=== PATIENT | male | born 1995 | race American Indian/Alaskan Native ===

== ENCOUNTER 2018-08-07 12:17 | Emergency (ER) | payer OTHER ==
[2018-08-07 12:21] VITALS: BP 126/78
--- NOTE | 2018-08-07 14:12 | Emergency Department Report ---
- General Chief Complaint: Upper Respiratory Infection Stated Complaint: FLU LIKE SYMPTOMS Time Seen by Provider: 08/07/18 14:01 Source: patient Mode of arrival: Ambulatory Limitations: No Limitations - History of Present Illness Initial Comments: Pt is a 23 yo male who presents to the ED with c/o a cough that began three weeks ago. The patient states he has yellow/green sputum production. The patient has associated congestion. He denies any rhinorrhea, sore throat, ear ache, or fever. He has not seen anyone for the cough. The patient has tried taking advil, OTC congestion medication, and dayquil with some relief. He denies any PMHx. He is a daily smoker with vapes. - Related Data Previous Rx's Medication Instructions Recorded Last Taken Type Azithromycin [Zithromax Z-ALEX] 250 mg PO DAILY 5 Days #6 tablet 08/07/18 Unknown Rx Benzonatate [Tessalon Perles] 100 mg PO Q8HR PRN #20 capsule 08/07/18 Unknown Rx Prednisone [predniSONE 10 mg 10 mg PO .TAPER #1 tab.ds.pk 08/07/18 Unknown Rx (6-Day Pack, 21 Tabs)] Allergies Allergy/AdvReac Type Severity Reaction Status Date / Time No Known Allergies Allergy Unverified 08/07/18 12:18 ED Review of Systems ROS: Stated complaint: FLU LIKE SYMPTOMS Other details as noted in HPI Comment: All other systems reviewed and negative ED Past Medical Hx - Past Medical History Previous Medical History?: No - Surgical History Past Surgical History?: No - Social History Smoking Status: Current Every Day Smoker Substance Use Type: Alcohol - Medications Home Medications: Home Medications Medication Instructions Recorded Confirmed Last Taken Type Azithromycin [Zithromax Z-ALEX] 250 mg PO DAILY 5 Days #6 tablet 08/07/18 Unknown Rx Benzonatate [Tessalon Perles] 100 mg PO Q8HR PRN #20 capsule 08/07/18 Unknown Rx Prednisone [predniSONE 10 mg 10 mg PO .TAPER #1 tab.ds.pk 08/07/18 Unknown Rx (6-Day Pack, 21 Tabs)] ED Physical Exam - General Limitations: No Limitations General appearance: alert, in no apparent distress - Head Head exam: Present: atraumatic, normocephalic - Eye Eye exam: Present: normal appearance - ENT ENT exam: Present: normal orophraynx, mucous membranes moist - Respiratory Respiratory exam: Present: normal lung sounds bilaterally. Absent: respiratory distress, rales, rhonchi, stridor, chest wall tenderness, accessory muscle use, decreased breath sounds, prolonged expiratory - Cardiovascular Cardiovascular Exam: Present: regular rate, normal rhythm, normal heart sounds. Absent: systolic murmur, rubs, gallop - Neurological Exam Neurological exam: Present: alert, oriented X3 - Psychiatric Psychiatric exam: Present: normal affect, normal mood ED Course Vital Signs 08/07/18 12:19 Temperature 98.6 F Pulse Rate 64 Respiratory 18 Rate Blood Pressure 126/78 O2 Sat by Pulse 100 Oximetry ED Medical Decision Making - Radiology Data Radiology results: report reviewed, image reviewed CXR no acute process - Medical Decision Making Pt presents with a cough for three weeks with mucus sputum production. Has associated congestion, denies any other symptoms. VSS. CXR with no acute process . Gave pt zpak, prednisone, and tessalon perles. Will have pt follow up with PCP in the next 2-3 days. Discussed with pt to return to the ED for any new or worsening symptoms. Critical care attestation.: If time is entered above; I have spent that time in minutes in the direct care of this critically ill patient, excluding procedure time. ED Disposition Clinical Impression: URI (upper respiratory infection) Qualifiers: URI type: unspecified URI Qualified Code(s): J06.9 - Acute upper respiratory infection, unspecified Disposition: - TO HOME OR SELFCARE Is pt being admited?: No Does the pt Need Aspirin: No Condition: Stable Instructions: Upper Respiratory Infection (ED) Additional Instructions: Follow up with primary care doctor in the next 2-3 days. Take all medication as prescribed. Return to the ED if new or worsening symptoms. Prescriptions: Prednisone [predniSONE 10 mg (6-Day Pack, 21 Tabs)] 10 mg PO .TAPER #1 tab.ds.pk Benzonatate [Tessalon Perles] 100 mg PO Q8HR PRN #20 capsule PRN Reason: Cough Azithromycin [Zithromax Z-ALEX] 250 mg PO DAILY 5 Days #6 tablet Referrals: ALINE SNYDER MD [Primary Care Provider] - 2-3 Days Forms: Work/School Release Form(ED) Time of Disposition: 14:38 Print Language: BULGARIAN
--- NOTE | 2018-08-07 14:24 | XRay Report ---
ROUTINE CHEST, TWO VIEWS: HISTORY: Cough for 3 weeks. The trachea, heart, mediastinal contour, lung gunderson and bony thorax are unremarkable. IMPRESSION: Unremarkable chest x-ray.
== END 2018-08-07 14:49 | disposition home or self-care (01) ==
LOC: ED 12:17
DX: J06.9 Acute upper respiratory infection, unspecified (principal); F17.200 Nicotine dependence, unspecified, uncomplicated
CPT/HCPCS: 71046; 99283